=== PATIENT | male | born 1980 | race Caucasian/White ===

== ENCOUNTER 2016-04-23 15:07 | Emergency (ER) | payer BC ==
[2016-04-23 15:25] VITALS: BP 116/63
--- NOTE | 2016-04-23 15:47 | UC ---
Epistaxis Nasal HPI - HPI Summary HPI Summary: 35 y/o male c/o nose bleed from the right nostril after blowing his nose yesterday. States, "my nose bled continuously for 10-15 minutes, bright red blood, resolved after applying continuous pressure". Today, patient blew his nose and the right nostril began bleeding again, resolved with "pinching the nose". Denies trauma or previous injury to the nose, spontaneous bruising, clotting disorder hx, bounding heart rate, or chest discomfort. Reports nasal congestion x 3-4 days prior to the nose bleed. - History of Current Complaint Chief Complaint: UCGeneralIllness Stated Complaint: NOSE BLEEDS Time Seen by Provider: 04/23/16 15:33 Hx Obtained From: Patient Onset/Duration: Sudden Onset Timing: Minutes - Last 10-15 of applying direct pressure, then symptoms resolved. Severity Initially: Mild Severity Currently: Mild Character: Light Aggravating Factor(s): URI Alleviating Factor(s): Pressure, Position Associated Signs And Symptoms: Positive: Nasal Discharge. Negative: Bruising, Hematuria, Recent Abnormal Coagulation Studies Related Hx: NSAIDs - Only dose today - Allergies/Home Medications Allergies/Adverse Reactions: Allergies Allergy/AdvReac Type Severity Reaction Status Date / Time No Known Allergies Allergy Verified 07/28/12 09:44 PMH/Surg Hx/FS Hx/Imm Hx Previously Healthy: Yes - Seasonal allergies Endocrine History Of: Denies: Diabetes, Thyroid Disease Cardiovascular History Of: Reports: Cardiac Disorders - ARRYTHMIA, A fib Denies: Hypertension Respiratory History Of: Reports: Asthma Denies: COPD GI/ History Of: Denies: Ulcer Psychological History Of: Denies: Anxiety, Depression Other History Of: Negative For: HIV, Hepatitis C, Anticoagulant Therapy - Surgical History Surgical History: None - Family History Known Family History: Positive: None - Social History Occupation: Employed Full-time Alcohol Use: Weekly Alcohol Amount: 2-3x's per week with 2-3 drinks Substance Use Type: None Smoking Status (MU): Former Smoker Type: Cigarettes Amount Used/How Often: 1 ppd Length of Time of Smoking/Using Tobacco: 10 years When Did the Patient Quit Smoking/Using Tobacco: 8 years ago - Immunization History Most Recent Influenza Vaccination: season Review of Systems Constitutional: Negative Skin: Negative Eyes: Negative ENT: Epistaxis, Nasal Discharge Respiratory: Negative Cardiovascular: Negative Gastrointestinal: Negative Genitourinary: Negative Motor: Negative Neurovascular: Negative Musculoskeletal: Negative Neurological: Negative Psychological: Negative All Other Systems Reviewed And Are Negative: Yes Physical Exam Triage Information Reviewed: Yes Appearance: Well-Appearing, No Pain Distress Vital Signs: Initial Vital Signs Temp 98.6 F 04/23/16 15:19 Pulse 53 04/23/16 15:19 Resp 16 04/23/16 15:19 BP 116/63 04/23/16 15:19 Pulse Ox 99 04/23/16 15:19 Vital Signs Reviewed: Yes Eye Exam: Normal Eyes: Positive: Conjunctiva Clear ENT: Positive: Hearing grossly normal, Pharynx normal, Nasal congestion, TMs normal, Other: - Blood clot present in the right naris Dental Exam: Normal Dental: Negative: Cervical Lymphadenopathy Neck exam: Normal Neck: Positive: Supple, Nontender, No Lymphadenopathy Respiratory Exam: Normal Respiratory: Positive: Chest non-tender, Lungs clear, Normal breath sounds, No respiratory distress Cardiovascular Exam: Normal Cardiovascular: Positive: RRR, No Murmur, Pulses Normal, Brisk Capillary Refill Abdominal Exam: Normal Abdomen Description: Positive: Nontender, No Organomegaly, Soft Musculoskeletal Exam: Normal Musculoskeletal: Positive: Strength Intact, ROM Intact Neurological Exam: Normal Neurological: Positive: Alert, Muscle Tone Normal Psychological Exam: Normal Skin: Positive: Other - Epistaxis right nare Epistaxis Nasal Course/Dx - Differential Dx/Diagnosis Provider Diagnoses: epistaxis Discharge - Discharge Plan Condition: Stable Disposition: HOME Patient Education Materials: Nosebleed (ED) Referrals: Camille Mendoza MD [Primary Care Provider] - If Needed Additional Instructions: As discussed, if noticed signs of clotting disorders such as spontaneous bruising, uncontrolled nosebleed after applying continuous direct pressure for more than 45 minutes. Seek medical attention for signs of bounding heart rate, elevated blood pressure, or chest discomfort.
== END 2016-04-23 16:02 | disposition home or self-care (01) ==
LOC: UCEAST 15:07
DX: R04.0 Epistaxis (principal); I48.91 Unspecified atrial fibrillation; Z87.891 Personal history of nicotine dependence
CPT/HCPCS: 99211; G0463

== ENCOUNTER 2016-10-04 12:42 | Emergency (ER) | payer BC ==
--- NOTE | 2016-10-04 15:13 | UC ---
Back Pain HPI - HPI Summary HPI Summary: Twisted back a few days ago has continuing tightness in lower back - History of Current Complaint Chief Complaint: UCBackPain Stated Complaint: BACK PAIN Time Seen by Provider: 10/04/16 15:05 Hx Obtained From: Patient Onset/Duration: Sudden Onset, Lasting Days, Still Present Timing: Constant Severity Initially: Moderate Severity Currently: Moderate Pain Intensity: 6 Pain Scale Used: 0-10 Numeric Back Pain: Is Discrete @ - lumbar both sides of back Character: Aching, Stiffness Aggravating: Movement, Lifting, Bending, Walking Alleviating: Rest Associated Signs And Symptoms: Negative: Weakness, Numbness, Tingling, Pain with Weight Bearing - Allergies/Home Medications Allergies/Adverse Reactions: Allergies Allergy/AdvReac Type Severity Reaction Status Date / Time No Known Allergies Allergy Verified 10/04/16 13:44 PMH/Surg Hx/FS Hx/Imm Hx Previously Healthy: No Cardiovascular History: Hypertension Respiratory History: Asthma Other History Of: Negative For: HIV, Hepatitis C, Anticoagulant Therapy - Surgical History Surgical History: None - Family History Known Family History: Positive: None - Social History Occupation: Employed Full-time Lives: With Family Alcohol Use: Weekly Alcohol Amount: 2-3x's per week with 2-3 drinks Substance Use Type: None Smoking Status (MU): Former Smoker Type: Cigarettes Amount Used/How Often: 1 ppd Length of Time of Smoking/Using Tobacco: 10 years When Did the Patient Quit Smoking/Using Tobacco: 8 years ago - Immunization History Most Recent Influenza Vaccination: season Review of Systems Constitutional: Negative Skin: Negative Eyes: Negative ENT: Negative Respiratory: Negative Cardiovascular: Negative Gastrointestinal: Negative Genitourinary: Negative Motor: Negative Neurovascular: Negative Musculoskeletal: Arthralgia - lumbar back with out radiation Neurological: Negative Psychological: Negative All Other Systems Reviewed And Are Negative: Yes Physical Exam Triage Information Reviewed: Yes Appearance: Well-Appearing, No Pain Distress, Well-Nourished, Pain Distress - mild Vital Signs: Initial Vital Signs Temp 97.9 F 10/04/16 13:40 Pulse 61 10/04/16 13:40 Resp 18 10/04/16 13:40 BP 154/68 10/04/16 13:40 Pulse Ox 99 10/04/16 13:40 Vital Signs Reviewed: Yes Eye Exam: Normal Eyes: Positive: Conjunctiva Clear ENT Exam: Normal ENT: Positive: Normal ENT inspection, Hearing grossly normal. Negative: Nasal congestion, Nasal drainage, Trismus, Muffled/hoarse voice Dental Exam: Normal Neck exam: Normal Neck: Positive: Supple, Nontender Respiratory Exam: Normal Respiratory: Positive: Chest non-tender, No respiratory distress, No accessory muscle use Cardiovascular Exam: Normal Cardiovascular: Positive: RRR, Pulses Normal, Brisk Capillary Refill Musculoskeletal Exam: Normal Musculoskeletal: Positive: Strength Intact, ROM Intact, No Edema Neurological Exam: Normal Neurological: Positive: Alert, Muscle Tone Normal Psychological Exam: Normal Skin Exam: Normal Back Pain Course/Dx - Course Course Of Treatment: muscle relaxores, nsaids, exercise rx, physical therapy, follow with pcp should sx fail to resolve - Differential Dx/Diagnosis Differential Diagnosis/HQI/PQRI: Arthritis, Herniated Disc, Strain, Sprain Provider Diagnoses: Lumbar strain, hypertension in poor control Discharge - Discharge Plan Condition: Stable Disposition: HOME Prescriptions: Cyclobenzaprine TAB* [Flexeril 10 MG TAB*] 10 mg PO TID PRN #15 tab PRN Reason: muscle spasm Ibuprofen TAB* [Motrin TAB* 600 MG] 600 mg PO Q6H PRN #30 tab PRN Reason: Pain Patient Education Materials: Low Back Strain (ED), Hypertension (ED), Lower Back Exercises (ED), Core Strengthening Exercises (ED) Referrals: Gopi Dee MD [Primary Care Provider] - 1 Week
[2016-10-04] MEDS ORDERED: Ibuprofen TAB* 600 MG PO ONE (15:19)
[2016-10-04 15:27] VITALS: BP 115/67
== END 2016-10-04 15:28 | disposition home or self-care (01) ==
LOC: UCEAST 12:42
DX: S39.012A Strain of muscle, fascia and tendon of lower back, initial encounter (principal); I10 Essential (primary) hypertension; J45.909 Unspecified asthma, uncomplicated; Z87.891 Personal history of nicotine dependence; X50.1XXA Overexertion from prolonged static or awkward postures, initial encounter
CPT/HCPCS: 99212; A9270-GY; G0463